=== PATIENT | male | born 1980 | race African-American/Black ===

== ENCOUNTER 2017-02-13 15:04 | Emergency (ER) | payer OTHER ==
[2017-02-13 15:44] VITALS: BP 138/82; PULSE 67; RESP 18; TEMP 97.8
--- NOTE | 2017-02-13 15:55 | ED ---
General Adult HPI - General Chief complaint: Extremity Injury, Upper Stated complaint: Wrist Pain Time Seen by Provider: 02/13/17 15:49 Source: patient, RN notes reviewed Mode of arrival: ambulatory Limitations: no limitations - History of Present Illness Initial comments: Patient 36-year-old male who presents emergency room today chief complaint of pain with certain movements the right wrist. Patient admits that he is left- handed. He states that when he moves certain ways with flexion extension to the right wrist he does feel some pain down into the fifth metacarpal. Patient also admits that he feels like the bone is "sticking out" more. Patient states pains are all time only with certain movements. He denies any other complaints or associated symptoms. Patient denies any recent fever, chills, shortness of breath, chest pain, back pain, abdominal pain, nausea or vomiting, numbness or tingling, dysuria or hematuria, constipation or diarrhea, headaches or visual changes, or any other complaints. - Related Data Previous Rx's Medication Instructions Recorded Ibuprofen [Motrin] 600 mg PO Q6HR PRN #20 day 02/13/17 Allergies Allergy/AdvReac Type Severity Reaction Status Date / Time No Known Allergies Allergy Verified 02/13/17 15:44 Review of Systems ROS Statement: Those systems with pertinent positive or pertinent negative responses have been documented in the HPI. ROS Other: All systems not noted in ROS Statement are negative. Past Medical History Past Medical History: No Reported History History of Any Multi-Drug Resistant Organisms: None Reported Past Surgical History: Hernia Repair Past Psychological History: No Psychological Hx Reported Smoking Status: Never smoker Past Alcohol Use History: Daily Past Drug Use History: None Reported General Exam - General Exam Comments Initial Comments: General: The patient is awake and alert, in no distress, and does not appear acutely ill. Neck: The neck is supple, there is no tenderness or JVD. Cardiovascular: There is a regular rate and rhythm. No murmur, rub or gallop is appreciated. Respiratory: Lungs are clear to auscultation, respirations are non-labored, breath sounds are equal. No wheezes, stridor, rales, or rhonchi. Musculoskeletal: She does have normal appearance of the right wrist no obvious deformity. He shows full range of motion all directions. Sensations are intact with pulses are bilaterally 2+. Cap refill less than 2 seconds. Strength is 5/5. No Bony tenderness. Neurological: A&O x 3. CN II-XII intact, There are no obvious motor or sensory deficits. Coordination appears grossly intact. Speech is normal. Skin: Skin is warm and dry and no rashes or lesions are noted. Psychiatric: Normal mood and affect. Limitations: no limitations Course Vital Signs 02/13/17 15:41 Temperature 97.8 F Pulse Rate 67 Respiratory 18 Rate Blood Pressure 138/82 O2 Sat by Pulse 100 Oximetry Medical Decision Making - Medical Decision Making Patient's x-rays reviewed and are negative for any acute abnormalities. Patient is advised to rest the area use ibuprofen. Advised to follow-up with orthopedics if symptoms persist for further evaluation. Patient states understanding and is in agreement. Disposition Clinical Impression: Wrist pain, acute Disposition: HOME SELF-CARE Condition: Good Instructions: Wrist Injury (ED) Additional Instructions: Please rest the area as discussed use ice and elevate at least 4 times daily for 20 minutes at a time. Please follow-up with orthopedics if symptoms persist for further evaluation. Prescriptions: Ibuprofen [Motrin] 600 mg PO Q6HR PRN #20 day PRN Reason: Pain Referrals: None,Stated [Primary Care Provider] - 1-2 days Jareth Crum MD [STAFF PHYSICIAN] - 1-2 days Time of Disposition: 16:15
--- NOTE | 2017-02-13 16:09 | XR ---
EXAMINATION TYPE: XR wrist complete RT DATE OF EXAM: 02/13/2017 4:02 PM COMPARISON: NONE HISTORY: 36-year-old male increasing right wrist pain and clicking TECHNIQUE: 4 views FINDINGS: The radiocarpal and distal radial ulnar joints as well as the midcarpal compartment are intact. No ac ammon fracture, subluxation, or dislocation. IMPRESSION: No acute osseous abnormality seen.
== END 2017-02-13 16:33 | disposition home or self-care (01) ==
LOC: EC 15:04
DX: M25.531 Pain in right wrist (principal)
CPT/HCPCS: 99283

== ENCOUNTER 2017-09-06 23:06 | Emergency (ER) | payer OTHER ==
[2017-09-06] MEDS ORDERED: DIAZEPAM 5 MG TAB PO STA (23:39)
--- NOTE | 2017-09-07 00:09 | ED ---
General Adult HPI - General Chief complaint: Back Pain/Injury Stated complaint: back pain Time Seen by Provider: 09/06/17 23:20 Source: patient, RN notes reviewed Mode of arrival: ambulatory Limitations: no limitations - History of Present Illness Initial comments: 37 shows male presents emergency Department chief complaint of back pain. He has had this back pain ever since this morning when he tried to get into his car his back just seemed to lock up. He went to [facility] they did a CAT scan of his back and gave him injections. He states he gave him Narco for home however it does not seem to be getting better. He states he can barely sit down or bend over at all without his back spasming and locking up. They were concerned due to the patient's continued discomfort so they thought that they should be seen. There has been no other symptoms in the patient. He denies a loss by bladder function. He denies any saddle anesthesia. Patient is not currently having any other symptoms. Patient denies any recent fever, chills, shortness of breath, chest pain, abdominal pain, nausea vomiting, numbness or tingling, dysuria or hematuria, constipation or diarrhea, headaches or visual changes, or any other current symptoms. - Related Data Home Medications Medication Instructions Recorded Confirmed Ibuprofen [Motrin] 200 mg PO Q6HR PRN 09/06/17 09/06/17 Previous Rx's Medication Instructions Recorded Diazepam [Valium] 5 mg PO TID #10 tab 09/07/17 Allergies Allergy/AdvReac Type Severity Reaction Status Date / Time No Known Allergies Allergy Verified 09/06/17 23:30 Review of Systems ROS Statement: Those systems with pertinent positive or pertinent negative responses have been documented in the HPI. ROS Other: All systems not noted in ROS Statement are negative. Past Medical History Past Medical History: No Reported History History of Any Multi-Drug Resistant Organisms: None Reported Past Surgical History: Hernia Repair Past Psychological History: No Psychological Hx Reported Smoking Status: Current every day smoker Past Alcohol Use History: Rare Past Drug Use History: None Reported General Exam Limitations: no limitations General appearance: alert, in no apparent distress Eye exam: Present: normal appearance, PERRL, EOMI. Absent: scleral icterus, conjunctival injection, periorbital swelling ENT exam: Present: normal exam, mucous membranes moist Neck exam: Present: normal inspection. Absent: tenderness, meningismus, lymphadenopathy Respiratory exam: Present: normal lung sounds bilaterally. Absent: respiratory distress, wheezes, rales, rhonchi, stridor Cardiovascular Exam: Present: regular rate, normal rhythm, normal heart sounds. Absent: systolic murmur, diastolic murmur, rubs, gallop, clicks Extremities exam: Present: normal inspection, full ROM, normal capillary refill. Absent: tenderness, pedal edema, joint swelling, calf tenderness Back exam: Present: normal inspection, paraspinal tenderness (More so on the left). Absent: full ROM (Limited due to pain), tenderness, vertebral tenderness Neurological exam: Present: alert, oriented X3 Psychiatric exam: Present: normal affect, normal mood Course Vital Signs 09/06/17 23:13 Temperature 97.4 F L Pulse Rate 100 Respiratory 18 Rate Blood Pressure 123/92 O2 Sat by Pulse 98 Oximetry Medical Decision Making - Medical Decision Making 37-year-old male presents emergency Department chief complaint of back pain. At this time patient is feeling improvement with the medication. This time we will write him a prescription for home. We did discuss follow-up return parameters all questions. The patient family stated are in agreement with management plan. All questions have been answered. They will be discharged home. - Radiology Data Radiology results: report reviewed (Computed tomography scan that was transferred from [facility]) Disposition Clinical Impression: Strain of lumbar region Disposition: HOME SELF-CARE Condition: Stable Instructions: Acute Low Back Pain (ED) Additional Instructions: Please use medication as discussed. Please follow up with family doctor if symptoms have not improved over the next two days. Please return to the emergency room if your symptoms increase or worsen or for any other concerns. Prescriptions: Diazepam [Valium] 5 mg PO TID #10 tab Referrals: Dinah Santizo MD [REFERRING] - 1-2 days Time of Disposition: 00:37
[2017-09-07 01:02] VITALS: BP 123/78; PULSE 92; RESP 16; TEMP 98
== END 2017-09-07 01:00 | disposition home or self-care (01) ==
LOC: EC 23:06
DX: S39.012D Strain of muscle, fascia and tendon of lower back, subsequent encounter (principal); F17.200 Nicotine dependence, unspecified, uncomplicated; X50.9XXD Other and unspecified overexertion or strenuous movements or postures, subsequent encounter
CPT/HCPCS: 99283

== ENCOUNTER 2018-05-08 22:15 | Emergency (ER) | payer OTHER ==
[2018-05-08 22:40] VITALS: BP 146/85; PULSE 93; RESP 18; TEMP 98.2
--- NOTE | 2018-05-08 23:30 | ED ---
Skin/Abscess/FB HPI - General Chief complaint: Skin/Abscess/Foreign Body Stated complaint: Insect bite Time Seen by Provider: 05/08/18 22:50 Source: patient, RN notes reviewed, old records reviewed Mode of arrival: ambulatory Limitations: no limitations - History of Present Illness Initial comments: 37 year old male with CC of rash over left anterior chest wall and back for one week. He originally thought that his daughter scratched him, as well as a possible bug bite. He reports he noticed more areas of blistering and that it is very painful. He denies having this rash before. Patient did have chicken pox as a child. - Related Data Home Medications Medication Instructions Recorded Confirmed Ibuprofen [Motrin] 200 mg PO Q6HR PRN 09/06/17 09/06/17 Previous Rx's Medication Instructions Recorded Diazepam [Valium] 5 mg PO TID #10 tab 09/07/17 Cyclobenzaprine [Flexeril] 10 mg PO TID #15 tab 09/11/17 Naproxen 500 mg PO BID #20 tablet 09/11/17 Acetaminophen with Codeine 1 tab PO Q6H PRN 3 Days #12 tab 05/08/18 [Tylenol w/codeine #3] Acyclovir [Zovirax] 800 mg PO 5XD 7 Days 05/08/18 Gabapentin [Neurontin] 300 mg PO DIRECTED #15 05/08/18 Lidocaine 5% Patch [Lidoderm 5% 1 patch TOPICAL DAILY #10 patch 05/08/18 Patch] Allergies Allergy/AdvReac Type Severity Reaction Status Date / Time No Known Allergies Allergy Verified 05/08/18 22:40 Review of Systems ROS Statement: Those systems with pertinent positive or pertinent negative responses have been documented in the HPI. ROS Other: All systems not noted in ROS Statement are negative. Past Medical History Past Medical History: Osteoarthritis (OA) Additional Past Medical History / Comment(s): herniated discs History of Any Multi-Drug Resistant Organisms: None Reported Past Surgical History: Hernia Repair Past Psychological History: Anxiety, Bipolar, Depression Smoking Status: Current every day smoker Past Alcohol Use History: Occasional Past Drug Use History: None Reported General Exam - General Exam Comments Initial Comments: This is a 37 year old male, no distress. Limitations: no limitations General appearance: alert, in no apparent distress Head exam: Present: atraumatic, normocephalic, normal inspection Eye exam: Present: normal appearance, PERRL, EOMI. Absent: scleral icterus, conjunctival injection, periorbital swelling ENT exam: Present: normal exam, mucous membranes moist Neck exam: Present: normal inspection. Absent: tenderness, meningismus, lymphadenopathy Respiratory exam: Present: normal lung sounds bilaterally. Absent: respiratory distress, wheezes, rales, rhonchi, stridor Cardiovascular Exam: Present: regular rate, normal rhythm, normal heart sounds. Absent: systolic murmur, diastolic murmur, rubs, gallop, clicks GI/Abdominal exam: Present: soft, normal bowel sounds. Absent: distended, tenderness, guarding, rebound, rigid Psychiatric exam: Present: normal affect, normal mood Skin exam: Present: warm, dry, intact, normal color, rash (Blister like rash over T7 dermatome. ) Course Vital Signs 05/08/18 22:38 Temperature 98.2 F Pulse Rate 93 Respiratory 18 Rate Blood Pressure 146/85 O2 Sat by Pulse 99 Oximetry Medical Decision Making - Medical Decision Making This is a 37 year old male presets to ED with blister like rash for one week. PAtient orignially thought this was due to scratch or insect bite. Rash has crop like blisters consistent with herpes zoster. He did have chicken pox as a child. He does state he has a 9 month old daughter. Discussed he needs to keep the blisters covered around her as she can develop chicken pox. Discussed placing patient on antiviral, pain medication, and nerve medication. Discussed close PCP follow up. REturn parameters discussed. Disposition Clinical Impression: Shingles Disposition: HOME SELF-CARE Condition: Good Instructions: Shingles (ED) Additional Instructions: Patient advised to follow-up with primary care physicians. Does take the medications as prescribed. Patient can return to emergency department if any alarming signs or symptoms occur. Prescriptions: Acetaminophen with Codeine [Tylenol w/codeine #3] 1 tab PO Q6H PRN 3 Days #12 tab PRN Reason: Pain Acyclovir [Zovirax] 800 mg PO 5XD 7 Days Gabapentin [Neurontin] 300 mg PO DIRECTED #15 Lidocaine 5% Patch [Lidoderm 5% Patch] 1 patch TOPICAL DAILY #10 patch Is patient prescribed a controlled substance at d/c from ED?: Yes When asked, does pt state using other controlled substances?: No If prescribed controlled substance>3 days was MAPS reviewed?: Prescribed <3 Days If opioid is for acute pain is fill amount 7 days or less?: Yes If Rx opioid, was Start Talking consent form obtained?: Yes Referrals: None,Stated [Primary Care Provider] - 1-2 days Toyin Weber MD [STAFF PHYSICIAN] - 1-2 days Time of Disposition: 23:24
== END 2018-05-08 23:45 | disposition home or self-care (01) ==
LOC: EC 22:15
DX: B02.9 Zoster without complications (principal); M19.90 Unspecified osteoarthritis, unspecified site; F17.200 Nicotine dependence, unspecified, uncomplicated
CPT/HCPCS: 99283

== ENCOUNTER 2019-02-20 09:34 | Emergency (ER) | payer OTHER ==
[2019-02-20 09:42] VITALS: BP 120/84; PULSE 80; RESP 16; TEMP 97.7
--- NOTE | 2019-02-20 10:46 | ED ---
Nausea/Vomiting/Diarrhea HPI - General Chief complaint: Nausea/Vomiting/Diarrhea Stated complaint: Nausea, vomiting Time Seen by Provider: 02/20/19 10:22 Source: patient, RN notes reviewed, old records reviewed Mode of arrival: ambulatory Limitations: no limitations - History of Present Illness Initial comments: This is a 38-year-old male the ER for evaluation. Presents today for evaluation regarding nausea vomiting nausea vomiting after eating. No fevers. No pain. He does complain of occasional abdominal pain after eating. Nausea and feels like he may have food poisoning. No recent travel history no sick contacts no fevers. No diarrhea. MD complaint: nausea, vomiting, abdominal pain (After eating) -: days(s) Description of Vomiting: food contents, watery Associated Abdominal Pain: Yes Location: periumbilical Radiation: none Severity: mild Severity scale (1-10): 1 Quality: aching Consistency: constant Improves with: none Worsens with: none Associated Symptoms: loss of appetite, nausea/vomiting - Related Data Previous Rx's Medication Instructions Recorded Famotidine [Pepcid] 20 mg PO BID #28 tablet 02/20/19 Omeprazole 20 mg PO DAILY #30 cap 02/20/19 Ondansetron Odt [Zofran ODT] 4 mg PO Q8HR PRN #30 tab 02/20/19 Allergies Allergy/AdvReac Type Severity Reaction Status Date / Time No Known Allergies Allergy Verified 02/20/19 10:07 Review of Systems ROS Statement: Those systems with pertinent positive or pertinent negative responses have been documented in the HPI. ROS Other: All systems not noted in ROS Statement are negative. Past Medical History Past Medical History: Osteoarthritis (OA) Additional Past Medical History / Comment(s): herniated discs History of Any Multi-Drug Resistant Organisms: None Reported Past Surgical History: Hernia Repair Past Psychological History: Anxiety, Bipolar, Depression Smoking Status: Former smoker Past Alcohol Use History: Occasional Past Drug Use History: None Reported General Exam Limitations: no limitations General appearance: alert, in no apparent distress Head exam: Present: atraumatic, normocephalic, normal inspection Eye exam: Present: normal appearance, PERRL, EOMI. Absent: scleral icterus, conjunctival injection, periorbital swelling ENT exam: Present: normal exam, mucous membranes moist Neck exam: Present: normal inspection. Absent: tenderness, meningismus, lymphadenopathy Respiratory exam: Present: normal lung sounds bilaterally. Absent: respiratory distress, wheezes, rales, rhonchi, stridor Cardiovascular Exam: Present: regular rate, normal rhythm, normal heart sounds. Absent: systolic murmur, diastolic murmur, rubs, gallop, clicks GI/Abdominal exam: Present: soft, normal bowel sounds. Absent: distended, tenderness, guarding, rebound, rigid Extremities exam: Present: normal inspection, full ROM, normal capillary refill. Absent: tenderness, pedal edema, joint swelling, calf tenderness Back exam: Present: normal inspection Neurological exam: Present: alert, oriented X3, CN II-XII intact Psychiatric exam: Present: normal affect, normal mood Skin exam: Present: warm, dry, intact, normal color. Absent: rash Course Vital Signs 02/20/19 09:39 Temperature 97.7 F Pulse Rate 80 Respiratory 16 Rate Blood Pressure 120/84 O2 Sat by Pulse 100 Oximetry Medical Decision Making - Medical Decision Making 38 male the ER for evaluation nausea vomiting. Patient has pain after eating postprandial pain. Patient is likely ulcer versus gastritis. No abdominal tenderness on exam patient can be discharged Disposition Clinical Impression: Food poisoning, Nausea & vomiting, Gastritis Disposition: HOME SELF-CARE Condition: Good Instructions (If sedation given, give patient instructions): Gastritis (ED), Acute Nausea and Vomiting (ED) Prescriptions: Omeprazole 20 mg PO DAILY #30 cap Famotidine [Pepcid] 20 mg PO BID #28 tablet Ondansetron Odt [Zofran ODT] 4 mg PO Q8HR PRN #30 tab PRN Reason: nausea/vomiting Is patient prescribed a controlled substance at d/c from ED?: No Referrals: None,Stated [Primary Care Provider] - 1-2 days
== END 2019-02-20 11:05 | disposition home or self-care (01) ==
LOC: EC 09:34
DX: T62.91XA Toxic effect of unspecified noxious substance eaten as food, accidental (unintentional), initial encounter (principal); K29.70 Gastritis, unspecified, without bleeding; Z87.891 Personal history of nicotine dependence; R10.13 Epigastric pain
CPT/HCPCS: 99284

== ENCOUNTER 2023-02-10 17:38 | Emergency (ER) | payer OTHER ==
[2023-02-10 17:49] VITALS: RESP 18; TEMP 98
--- NOTE | 2023-02-10 18:41 | US ---
EXAMINATION TYPE: US extremity nonvasc mass LT DATE OF EXAM: 02/10/2023 COMPARISON: NONE CLINICAL INDICATION: Male, 42 years old with history of L forearm mass; patient was racking the other day and felt a pop sensation in left wrist. Mass grew on anterior radial wrist that has since gone d own in size. Palpable still persists. FINDINGS: Within the soft tissues at the patient's indicated area of abnormality in the anterior, med ial wrist there is a nonvascular minimally complex fluid collection measuring 2.5 x 1.7 x 0.4 cm. Flu id collection is anterior to the tendon on the left radial wrist. Internal or peripheral vascularity is not appreciated. IMPRESSION: Small peritendinous fluid collection along the left anterior medial wrist, possibly representing an e ffusion secondary to tendinitis versus other tendon/soft tissue injury. If clinical symptoms persist consider further evaluation with MRI.
--- NOTE | 2023-02-10 18:58 | ED ---
General Adult HPI - General Chief complaint: Extremity Injury, Upper Stated complaint: Wrist Injury Time Seen by Provider: 02/10/23 17:49 Source: patient, RN notes reviewed Mode of arrival: ambulatory Limitations: no limitations - History of Present Illness Initial comments: 42-year-old -[place] male with no significant past medical history pres ents the emergency department with a chief complaint of left wrist pain. Patient reports he was raking proximately 1 week ago when he heard a "pop." He reports worsening pain and swelling to the area however that has since improved. He has not taken anything for symptoms. He denies any known trauma or injury. He denies any numbness, tingling, weakness in the extremity. He reports worsening pain with repetitive movement. - Related Data Previous Rx's Medication Instructions Recorded Famotidine [Pepcid] 20 mg PO BID #28 tablet 02/20/19 Omeprazole 20 mg PO DAILY #30 cap 02/20/19 Ondansetron Odt [Zofran ODT] 4 mg PO Q8HR PRN #30 tab 02/20/19 Allergies Allergy/AdvReac Type Severity Reaction Status Date / Time No Known Allergies Allergy Verified 02/10/23 17:49 Review of Systems ROS Statement: Those systems with pertinent positive or pertinent negative responses have been documented in the HPI. ROS Other: All systems not noted in ROS Statement are negative. Past Medical History Past Medical History: Osteoarthritis (OA) Additional Past Medical History / Comment(s): herniated discs History of Any Multi-Drug Resistant Organisms: None Reported Past Surgical History: Hernia Repair Past Psychological History: Anxiety, Bipolar, Depression Past Alcohol Use History: Occasional Past Drug Use History: None Reported General Exam - General Exam Comments Initial Comments: General: Alert, in no acute distress Head: atraumatic normocephalic. Eyes PERRL, EOMI intact, mucous membranes moist Respiratory: Lungs clear to auscultation bilaterally Cardiovascular: Regular rate and rhythm Abdominal: Soft without guarding or rebound Extremities: Normal inspection with full range of motion and normal capillary refill, left forearm with mild swelling full range of motion 2+ radial pulses distal NVI remains intact Neuroogic: alert and oriented 3, CN II-XII intact, able to ambulate with steady gait Skin: warm dry and intact with normal color Limitations: no limitations Course Vital Signs 02/10/23 02/10/23 17:45 19:13 Temperature 98 F Pulse Rate 54 L 60 Respiratory 18 18 Rate Blood Pressure 121/85 O2 Sat by Pulse 100 100 Oximetry Medical Decision Making - Medical Decision Making Was pt. sent in by a medical professional or institution ([facility], [facility], urgent care, hospital, or long-term...) When possible be specific @ -[No] Did you speak to anyone other than the patient for history (EMS, parent, family, police, friend...)? What history was obtained from this source @ -[No] Did you review nursing and triage notes (agree or disagree)? Why? @ -[I reviewed and agree with nursing and triage notes] Were old charts reviewed (outside hosp., previous admission, EMS record, old EKG, old radiological studies, urgent care reports/EKG's, long-term records)? Report findings @ -[No old charts were reviewed] Differential Diagnosis (chest pain, altered mental status, abdominal pain women, abdominal pain men, vaginal bleeding, weakness, fever, dyspnea, syncope, headache, dizziness, GI bleed, back pain, seizure, CVA, palpatations, mental health, musculoskeletal)? @ -[not applicable] EKG interpreted by me (3pts min.). @ -[As above] X-rays interpreted by me (1pt min.). @ -[None done] CT interpreted by me (1pt min.). @ -[None done] U/S interpreted by me (1pt. min.). @ -[None done] What testing was considered but not performed or refused? (CT, X-rays, U/S, labs)? Why? @ -[None] What meds were considered but not given or refused? Why? @ -[None] Did you discuss the management of the patient with other professionals (professionals i.e. [facility], [facility], lab, RT, psych nurse, nursing home social worker, acute care occupational therapist, teacher, legal compliance officer, correctional casework specialist)? Give summary @ -[No] Was smoking cessation discussed for >3mins.? @ -[No] Was critical care preformed (if so, how long)? @ -[No] Were there social determinants of health that impacted care today? How? (Homelessness, low income, unemployed, alcoholism, drug addiction, transportation, low edu. Level, literacy, decrease access to med. care, senior care, rehab)? @ -[No] Was there de-escalation of care discussed even if they declined (Discuss DNR or withdrawal of care, Hospice)? DNR status @ -[No] What co-morbidities impacted this encounter? (DM, HTN, Smoking, COPD, CAD, Cancer, CVA, ARF, Chemo, Hep., AIDS, mental health diagnosis, sleep apnea, morbid obesity)? @ -[None] Was patient admitted / discharged? Hospital course, mention meds given and route, prescriptions, significant lab abnormalities, going to OR and other pertinent info. @ -Discharged. This is a 42 year-old male who presents the emergency department with L wrist pain . Patient had a thorough history and physical exam performed, physical exam reveals heart rate regular rate and rhythm, lungs clear to auscultation bilaterally abdomen is soft and non-tender. Patient able to ambulate with a steady gait. No neurological deficits are noted. patient had lab work and imaging performed which was essentially unremarkable. Patient offered tylenol for symptoms, however he declined. I discussed the results in detail with the patient verbalized understanding and all questions were addressed. Return precautions were discussed at length. Discharged in stable condition. Case discussed with Dr. Pino, [facility] who agrees with plan of care Undiagnosed new problem with uncertain prognosis? @ -[No] Drug Therapy requiring intensive monitoring for toxicity (Heparin, Nitro, Insulin, Cardizem)? @ -[No] Were any procedures done? @ -[No] Diagnosis/symptom? @ -l wirst pain Acute, or Chronic, or Acute on Chronic? @ -acute Uncomplicated (without systemic symptoms) or Complicated (systemic symptoms)? @ -uncomplicated Side effects of treatment? @ -[No] Exacerbation, Progression, or Severe Exacerbation? @ -[No] Poses a threat to life or bodily function? How? (Chest pain, [place], [place], pneumonia, PE, COPD, DKA, ARF, appy, cholecystitis, CVA, Diverticulitis, Homicidal, Suicidal, threat to staff... and all critical care pts) @ -low likleihood Disposition Clinical Impression: Tendinitis Disposition: HOME SELF-CARE Condition: Stable Instructions (If sedation given, give patient instructions): Tendinitis (ED) Is patient prescribed a controlled substance at d/c from ED?: No Referrals: None,Stated [Primary Care Provider] - 1-2 days Time of Disposition: 18:57
[2023-02-10 19:14] VITALS: BP 121/85; PULSE 60
== END 2023-02-10 19:14 | disposition home or self-care (01) ==
LOC: EC 17:38
DX: M77.9 Enthesopathy, unspecified (principal); Z86.59 Personal history of other mental and behavioral disorders
CPT/HCPCS: 99283